=== PATIENT | male | born 1950 | race Caucasian/White ===

== ENCOUNTER 2020-11-21 18:50 | Emergency (ER) | payer OTHER, MEDICARE, MEDICAID, SELFPAY ==
[2020-11-21 19:08] VITALS: BP 190/103; PULSE 76; RESP 18; TEMP 36.6; O2SAT 96; BMI 32.0
--- NOTE | 2020-11-21 19:52 | ECG_ITS ---
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1950 Requested By: Yogi Hough Order Number: [id number] Reading MD: JULES LIM Measurements Intervals [place] Rate: 69 P: 53 MT: 145 QRS: 17 QRSD: 109 T: 44 QT: 468 QTc: 504 Interpretive Statements SINUS RHYTHM POSSIBLE LEFT ATRIAL ENLARGEMENT [-0.1mV P WAVE IN V1/V2] POSSIBLE LATERAL MYOCARDIAL INFARCTION [30 ms Q WAVE IN I/aVL/V5/V6], PROBABLY OLD Compared to ECG 07/12/2016 20:37:22 Left ventricular hypertrophy no longer present ST (T wave) deviation no longer present Myocardial infarct finding still present Electronically Signed On 11-21-2020 23:39:00 CDT by JULES LIM [id number]
--- NOTE | 2020-11-21 19:53 | ED_ITS ---
HPI - General Adult General: Chief complaint: General Medical Stated complaint: high blood pressure Time Seen by Provider: 11/21/20 19:46 Source: patient and family Mode of arrival: ambulatory Limitations: no limitations History of Present Illness: HPI narrative: Patient is here for blood pressure evaluation. He states that since his losartan 25 mg tablet and amlodipine 10 mg tablet were discontinued his blood pressures been running 160s systolic to 190s systolic. He states he continues taking metoprolol 100 mg twice a day. States he has slight chest wall pain bilaterally in the lateral aspects of his chest today. He states this is worse with movement. He denies any other complaints. He is mainly here for evaluation of his blood pressure. MD complaint: Hypertension Onset (ago): unknown (Chronic) Location: chest (Bilateral) Radiation: non-radiation Severity: mild Severity scale (1-10): 1 Quality: aching Pain Consistency: intermittent Relieving factors: none Exacerbating factors: other (Movement or deep breath) Associated symptoms: Reports no associated symptoms and chest pain (Mild bilateral chest wall pain with movement or deep inspiration); Deny dyspnea, headache(s), nausea, rash, palpitations or vomiting Treatments prior to arrival: other (Metoprolol) Review of Systems Const: Denies: fever(s) or chills Eyes: Denies: change in vision ENMT: Denies: throat pain Card: Reports: chest pain (Mild bilateral chest wall pain with movement or deep inspiration); Denies: palpitations Resp: Denies: dyspnea or wheezing GI: Denies: abdominal pain, nausea or vomiting : Denies: flank pain Musc: Denies: neck pain or back pain Skin/Breast: Denies: rash or pruritus Neuro: Denies: headache(s) or numbness in extremities Psych: Denies: anxiety Ciro/Lymph: Denies: enlarged lymph nodes Physical Exam Const: COMMON NORMALS: no acute distress, patient oriented x3, no limitations and well nourished EXAM LIMITATIONS: altered mental status GENERAL APPEARANCE: cooperative HENMT: COMMON NORMALS: normocephalic and atraumatic HEAD & SCALP: normocephalic and atraumatic FACE & SINUS: normal facial exam Eye: COMMON NORMALS: EOMs intact bilaterally Neck/C-Spine: COMMON NORMALS: full ROM, no lymphadenopathy, supple and no meningeal signs GENERAL: Yes normal visual inspection Lymph: LYMPHATIC: no lymphadenopathy noted Chest: COMMONS NORMALS: normal inspection of the chest and normal palpation of entire chest wall CHEST: No Ecchymosis present and No rash Breast/axilla inspection: Yes no chest deformity, asymmetry, normal contours, no nodules, masses, tenderness Resp: COMMON NORMALS: normal respiratory effort, No retractions and clear to auscultation bilaterally EFFORT & INSPECTION: No respiratory distress AUSCULTATION: clear to auscultation bilaterally Cardio: COMMON NORMALS: regular rate, regular rhythm and Peripheral pulses 2+ throughout JUGULAR VENOUS DISTENTION: no JVD RATE: regular rate RHYTHM: regular rhythm PERIPHERAL PULSES: Peripheral pulses 2+ throughout GI: COMMON NORMALS: Normal to inspection, nondistended, normoactive bowel sounds present and non-tender : COMMON NORMALS: Yes no CVA tenderness BLADDER/KIDNEY EXAM: Yes no CVA tenderness Back/Pelvis: COMMON NORMALS: no CVA tenderness Extremity: COMMON NORMALS: normal to inspection, full ROM and capillary refill normal Neuro: COMMON NORMALS: patient oriented x3, CN's II-XII intact bilaterally, no focal motor deficits and no sensory deficits noted MENINGEAL SIGNS: Yes no meningeal signs Psych: COMMON NORMALS: mental status grossly normal and Normal thought process present THOUGHT PROCESS: Normal thought process present Skin: COMMON NORMALS: no rashes or lesions noted and no wounds GENERAL SKIN EXAM: no rashes or lesions noted Course Vital Signs: Vital signs: Vital Signs Temperature 97.8 F 11/21/20 19:08 Pulse Rate 76 11/21/20 19:08 Respiratory Rate 18 11/21/20 19:08 Blood Pressure 190/103 11/21/20 19:08 Pulse Oximetry 96 11/21/20 19:08 MDM - General Adult MDM Narrative: Medical decision making narrative: Patient has chosen to take his home losartan 25 mg tablet here. His blood pressure is 193/103. He gave me a chart of his blood pressures and his systolic blood pressure has been running 160s to 190s after being taken off his losartan and amlodipine. I believe just starting his losartan 25 mg tablet will correct his blood pressure. He is a no distress. Will obtain EKG as a precaution. EKG Data^: EKG 1: Attestation: I personally reviewed and interpreted this EKG as follows: EKG interpretation date: 11/21/20 EKG interpretation time: 20:20 Prior EKG tracings: not available for review Interpretation: Normal sinus rhythm with heart rate of 69. Normal P wave, normal QRS, normal QT interval, normal ST segment, normal T wave. Normal EKG Discharge Plan Discharge Patient Disposition: Home Condition: Stable Discharge Orders: Discharge ED (Routine); Ordered 11/21/20 Ordered By: Yogi Durham Discharge Diet: Advance as tolerated and Low Salt Discharge Activity: Resume usual activity Patient Instructions: Chronic Hypertension (ED), Hypertension (ED), Opioid Safety Activity Restrictions/Additional Instructions: Continue home medications as prescribed. Hold amlodipine. Restart losartan at 25 mg daily. Continue metoprolol at present dose. Document blood pressure readings and follow-up with your doctor next week to see if any other adjustment needs to be made to your blood pressure medication. Return if any problems. Avoid added salt and caffeine. 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
[2020-11-21 21:03] VITALS: BP 178/98; O2SAT 96
== END 2020-11-21 21:04 | disposition home or self-care (01) ==
PROVIDERS: Emergency Provider Family Medicine
DX: I10 Essential (primary) hypertension (principal)
CPT/HCPCS: 93005; 99282

== ENCOUNTER 2023-05-08 10:01 | Outpatient (CLI) | payer OTHER, SELFPAY ==
--- NOTE | 2023-05-08 10:15 | USCV_ITS ---
Edmar Knight Age: 73 Gender: M : 1950 Exam Date: 05/08/2023 10:35 Ordering Phys: KALEY SAUNDERS MD Technologist: KAITLYNN Exam Location: [facility] [place] Indication: copd, cad, chronic ischemic HD, increase in SOB BP: 135 / 65 HR: 60 Rhythm: Sinus Technical Quality: Suboptimal MEASUREMENTS (Male / Female) Normal Values 2D ECHO LV Diastolic Diameter PLAX 3.8 cm 4.2 - 5.9 / 3.9 - 5.3 cm LV Systolic Diameter PLAX 2.3 cm IVS Diastolic Thickness 1.7 cm 0.6 - 1.0 / 0.6 - 0.9 cm IVS Systolic Thickness 1.7 cm LVPW Diastolic Thickness 1.2 cm 0.6 - 1.0 / 0.6 - 0.9 cm LVPW Systolic Thickness 1.7 cm LVOT Diameter 2.2 cm LV Ejection Fraction 2D Teich 71.9 % LV Ejection Fraction MOD 2C 52.3 % LV Ejection Fraction 2C AL 54.1 % LA Diameter 5.1 cm LA Width 4.7 cm LA Height 4.9 cm RA Width 2.8 cm RA Height 3.4 cm Aorta at Sinotubular Diameter 3.1 cm IVC Diameter 1.7 cm M-MODE Aortic Annulus Diameter 2.6 cm LA Ao Ratio MM 2.0 MV E Point Septal Separation 0.7 cm DOPPLER AV Peak Velocity 80.0 cm/s LVOT Peak Velocity 80.0 cm/s AV Area Cont Eq vti 3.9 cm squared AV Area Cont Eq pk 3.7 cm squared MV Peak Velocity 107.0 cm/s MV Area PHT 2.7 cm squared Mitral E to A Ratio 1.0 MV E' Velocity 54.0 cm/s Mitral E to MV E' Ratio 17.3 Mitral E to LV E' Lateral Ratio 16.7 Mitral E to LV E' Septal Ratio 17.9 TR Peak Velocity 81.3 cm/s TR Peak Gradient 2.6 mmHg Right Atrial Pressure 5.0 mmHg Pulmonary Artery Systolic Pressu 7.6 mmHg PV Peak Velocity 106.0 cm/s RV Acceleration Time 0.1 s RV Ejection Time 0.3 s RV AcT/ET 0.4 FINDINGS Left Ventricle Normal left ventricular size, systolic function and wall thickness. There is possible hypokinesis of apical septal wall. Left ventricular ejection fraction is estimated at 55 %. Grade II diastolic dysfunction, moderately elevated filling pressures. Right Ventricle Normal right ventricular size and systolic function. Right Atrium Normal right atrial size. Left Atrium Mildly increased left atrial size. Mitral Valve Mild mitral annular calcification. Mildly thickened mitral valve. No mitral valve stenosis. Trace mitral valve regurgitation. Aortic Valve Structurally normal trileaflet aortic valve. No aortic valve stenosis. No aortic valve regurgitation. Tricuspid Valve Structurally normal tricuspid valve. Pulmonic Valve Pulmonic valve not well visualized. Trace pulmonary valve regurgitation. Pericardium No pericardial effusion. Aorta Normal size aortic root and proximal ascending aorta. IVC Normal IVC dimension with >50% respiratory change of the inferior vena cava. CONCLUSIONS 1. This is a technically difficult study. 2. Normal left ventricular size, systolic function and wall thickness. There is possible hypokinesis of apical septal wall. Left ventricular ejection fraction is estimated at 55 %. Grade II diastolic dysfunction, moderately elevated filling pressures. 3. No significant valvular abnormality. 4. No prior similar studies to compare. Amanda Mao MD (Electronically Signed) Final Date: 12 May 2023 16:42 S
== END 2023-05-08 10:02 | disposition home or self-care (01) ==
PROVIDERS: Visit Provider Emergency Medicine
DX: I25.9 Chronic ischemic heart disease, unspecified (principal); J44.9 Chronic obstructive pulmonary disease, unspecified; R06.02 Shortness of breath; I51.89 Other ill-defined heart diseases
CPT/HCPCS: 93306

== ENCOUNTER → 2023-05-28 10:14 | Outpatient (BNVA) | payer OTHER, SELFPAY | PROVIDERS: Visit Provider Internal Medicine Cardiovascular Disease | DX: R06.09 Other forms of dyspnea (principal); I25.10 Atherosclerotic heart disease of native coronary artery without angina pectoris; I10 Essential (primary) hypertension; E78.5 Hyperlipidemia, unspecified | CPT/HCPCS: 93005; 99203 ==

== ENCOUNTER 2023-10-17 20:56 | Emergency (ER) | payer OTHER, SELFPAY ==
[2023-10-17 21:01] VITALS: BP 198/98; PULSE 88; RESP 17; TEMP 36.7; O2SAT 97; BMI 31.1
--- NOTE | 2023-10-17 21:12 | ECG_ITS ---
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 Measurements Intervals [place] Rate: 86 P: 44 TN: 150 QRS: 19 QRSD: 108 T: 54 QT: 394 QTc: 472 Interpretive Statements SINUS RHYTHM POSSIBLE ANTEROLATERAL MYOCARDIAL INFARCTION , PROBABLY OLD [30 ms Q WAVE IN I/aVL/V3-V6] Compared to ECG 05/28/2023 10:16:59 No significant changes Electronically Signed On 10-17-2023 21:59:15 CDT by Kwabena Cobos M.D. [id number]
--- NOTE | 2023-10-17 21:19 | ED_ITS ---
HPI - General Adult 2 General: Chief complaint: General Medical Stated complaint: High BP Time Seen by Provider: 10/17/23 21:09 Source: patient Mode of arrival: ambulatory Limitations: no limitations History of Present Illness: 73-year-old male states that he fell lik e his blood pressure been running high tonight. He does have a history of high blood pressure he is on Norvasc metoprolol and losartan. He denies any chest pain or headache he states that his blood pressures in the 180s. States that over the last week he has had some cough and congestion he denies any shortness of breath. Denies any fevers. Associated symptoms: Deny chest pain, dyspnea, headache(s), nausea, rash or vomiting Review of Systems 2 Const: Denies: fever(s) or chills ENMT: Denies: throat pain or dental pain Card: Denies: chest pain Resp: Denies: dyspnea GI: Denies: abdominal pain, nausea, vomiting or diarrhea Musc: Denies: neck pain or back pain Skin/Breast: Denies: rash Neuro: Denies: headache(s) PFSH ED 2 PFSH: Medical History Hyperlipidemia CAD (coronary artery disease) COPD (chronic obstructive pulmonary disease) Surgical History Hx of CABG Family History Father Arrhythmia CAD (coronary artery disease) Son Atrial fibrillation Mother Carotid artery disease Other Diabetes mellitus type 1 Hypertension Denies family history of Sudden cardiac Family history of premature coronary artery disease Cardiomyopathy Physical Exam 2 Const: COMMON NORMALS: no acute distress, patient oriented x3 and healthy appearing HENMT: COMMON NORMALS: normocephalic and atraumatic HEAD & SCALP: n ormocephalic and atraumatic Eye: COMMON NORMALS: Equal, round and reactive pupils present and EOMs intact bilaterally PUPIL: Yes Equal, round and reactive pupils present Neck/C-Spine: COMMON NORMALS: full ROM and supple Chest: COMMONS NORMALS: normal inspection of the chest and normal palpation of entire chest wall Resp: COMMON NORMALS: normal respiratory effort, No retractions, No use of accessory muscles and clear to auscultation bilaterally AUSCULTATION: clear to auscultation bilaterally Cardio: COMMON NORMALS: regular rate, regular rhythm and No murmurs present (Cardio) RATE: regular rate RHYTHM: regular rhythm Extremity: COMMON NORMALS: normal to inspection and full ROM Neuro: COMMON NORMALS: patient oriented x3, moves all extremities and no focal motor deficits Psych: COMMON NORMALS: mental status grossly normal, Normal thought process present and cooperative THOUGHT PROCESS: Normal thought process present Skin: COMMON NORMALS: no rashes or lesions noted and no wounds GENERAL SKIN EXAM: no rashes or lesions noted Course 2 Vital Signs: Vital signs: Vital Signs Temperature 98.1 F 10/17/23 21:01 Pulse Rate 80 10/17/23 21:53 Respiratory Rate 20 H 10/17/23 21:53 Blood Pressure 156/85 10/17/23 21:53 Pulse Oximetry 93 10/17/23 21:53 Oxygen Delivery Me thod Room Air 10/17/23 21:01 MDM - General Adult Medical Decision Making Patient presents here with concern of hypertension his blood pressure is improved he feels much improved blood work is normal he has had a cough x-ray shows a possible left lower lobe infiltrate we will start him on doxycycline he is to monitor his blood pressure follow-up his PCP return if worsening understands agrees plan. Medical Records I reviewed the patient's medical records. Lab Data I reviewed the patient's lab results. 10/17/23 21:32 10/17/23 21:32 Radiology Impressions Chest X-Ray 10/17/23 21:19 IMPRESSION: 1. Left lower lobe atelectasis versus minimal infiltrate. 2. Sternotomy wires. Laboratory Results WBC 13.66 10^3/uL (3.29-11.43) H 10/17/23 21:32 RBC 4.84 10^6/uL (3.85-5.65) 10/17/23 21:32 Hgb 14.00 g/dL (11.27-16.99) 10/17/23 21: Hct 43.4 % (37-53) 10/17/23 21:32 MCV 89.7 fl (82-101) 10/17/23 21: MCH 28.9 pg (27-33) 10/17/23 21: MCHC 32.3 g/dL (30-55) 10/17/23 21: RDW 12.2 % (12.1-15.1) 10/17/23 21: Plt Count 351 10^3/cmm (157-399) 10/17/23 21: MPV 9.4 fL (7.4-10.4) 10/17/23 21: Neut % (Auto) 65.2 % 10/17/23 21: Lymph % (Auto) 18.8 % 10/17/23 21: Dare % (Auto) 8.2 % 10/17/23 21:32 Eos % (Auto) 7.0 % 10/17/23 21: Baso % (Auto) 0.4 % 10/17/23: Neut # (Auto) 8.89 10^3/uL (1.8-7.7) H 10/17/23 21: Lymph # (Auto) 2.6 10^3/uL (0.8-4.8) 10/17/23 21: Dare # (Auto) 1.1 10^3/uL (0.2-0.9) H 10/17/23 21:32 Eos # (Auto) 1.0 10^3/uL (0.0-0.8) H 10/17/23 21: Baso # (Auto) 0.1 10^3/uL (0.0-0.1) 10/17/23: Nucleated RBC % (auto) 0 % 10/17/23: Nucleated RBCs # 0.0 /100WBC 10/17/23 21:32 Sodium 136 mmol/L (136-145) 10/17/23 21: Potassium 3.8 mmol/L (3.5-5.1) 10/17/23 21: Chloride 99 mmol/L (98-107) 10/17/23 21: Carbon Dioxide 25 mmol/L (22-29) 10/17/23 21: Anion Gap 15.8 (5-19) 10/17/23 21:32 BUN 7 mg/dL (8-23) L 10/17/23 21:32 Creatinine 0.8 mg/dL (0.7-1.2) 10/17/23 21:32 GFR Calculation Not Reportable 10/17/23 21:32 Glucose 165 mg/dL (65-115) H 10/17/23 21:32 Calculated Osmolality 284 mOsm/kg (285-295) L 10/17/23 21:32 Calcium 9.0 mg/dL (8.5-10.5) 10/17/23 21:32 All radiology interpretation(s) finalized by discharge EKG Data EKG 1: I personally reviewed and interpreted this EKG as follows: EKG interpretation date: 10/17/23 EKG interpretation time: 20:24 Interpretation: nsr hr [address] elevation qrs 108 qtc 437 Computer generated interpretation: Chest X-Ray 10/17/23 21:19 IMPRESSION: 1. Left lower lobe atelectasis versus minimal infiltrate. 2. Sternotomy wires. Discharge Plan Discharge Patient Disposition: Home Clinical Impression: Hypertension Qualifiers: Hypertension type: unspecified Qualified Code(s): I10 - Essential (primary) hypertension Pneumonia Qualifiers: Pneumonia type: due to unspecified organism Condition: Stable Prescriptions: New doxycycline hyclate 100 mg tablet 100 mg PO BID 7 Days Qty: 14 0RF Discharge Orders: Discharge ED (Routine); Ordered 10/17/23 Ordered By: Odalys Baires Discharge Diet: Advance as tolerated Discharge Activity: Resume usual activity Patient Instructions: Hypertension (ED), Pneumonia (ED) Coding Level of Care Code ED Digital Color 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
--- NOTE | 2023-10-17 21:19 | XRR_ITS ---
PROCEDURE INFORMATION: Exam: XR Chest Exam date and time: 10/17/2023 9:28 PM Age: 73 years old Clinical indication: Patient HX: HTN; Cough; HX cabg 2004 TECHNIQUE: Imaging protocol: Radiologic exam of the chest. Views: 1 view. COMPARISON: CR XR chest 1V [id number] 12/28/2017 3:20 PM FINDINGS: Lungs: Left lower lobe atelectasis versus minimal infiltrate. Pleural spaces: Unremarkable. No pleural effusion. No pneumothorax. Heart/Mediastinum: Unremarkable. No cardiomegaly. Bones/joints: Sternotomy wires. XR/XR chest 1V portable [id number] IMPRESSION: 1. Left lower lobe atelectasis versus minimal infiltrate. 2. Sternotomy wires.
[2023-10-17] MEDS: labetalol 5 mg/mL SDV 20mL 10 MG IVP (21:38)
[2023-10-17 21:39] LABS: Basophils # 0.1 10^3/uL (0.0-0.1); Basophils % 0.4 %; Hematocrit 43.4 % (37-53); Lymphocytes # 2.6 10^3/uL (0.8-4.8); Lymphocytes % 18.8 %; Mean Corpuscular HGB Conc 32.3 g/dL (30-55); Mean Corpuscular Hemoglobin 28.9 pg (27-33); Mean Corpuscular Volume 89.7 fl (82-101); Mean Platelet Volume 9.4 fL (7.4-10.4); Monocytes # 1.1 10^3/uL (0.2-0.9); Monocytes % 8.2 %; Neutrophils # 8.89 10^3/uL (1.8-7.7); Neutrophils % 65.2 %; Nucleated Red Blood Cells % 0 %; Platelet Count 351 10^3/cmm (157-399); Red Blood Count 4.84 10^6/uL (3.85-5.65); Red Cell Distribution Width 12.2 % (12.1-15.1); White Blood Count 13.66 10^3/uL (3.29-11.43)
[2023-10-17 21:53] VITALS: BP 156/85; PULSE 80; RESP 20; O2SAT 93
[2023-10-17 21:57] LABS: Blood Urea Nitrogen 7 mg/dL (8-23); Carbon Dioxide 25 mmol/L (22-29); Chloride 99 mmol/L (98-107); Creatinine Clr Calc Pharmacy 104.2317; Glucose 165 mg/dL (65-115); Osmolality Calculated 284 mOsm/kg (285-295); Sodium 136 mmol/L (136-145)
[2023-10-17 22:00] LABS: Anion Gap 15.8 (5-19); Potassium 3.8 mmol/L (3.5-5.1)
[2023-10-17] MEDS: doxycycline 100 mg Tablet PO (22:20)
[2023-10-17 22:25] VITALS: BP 145/86; PULSE 78; RESP 20; O2SAT 94
[2023-10-17 22:31] LABS: Influenza A by IFA negative (Negative); Influenza B by IFA negative (Negative); SARS Covid-2 Antigen negative (Negative)
== END 2023-10-17 22:26 | disposition home or self-care (01) ==
PROVIDERS: Emergency Provider Emergency Medicine
DX: I10 Essential (primary) hypertension (principal); J18.9 Pneumonia, unspecified organism; E78.5 Hyperlipidemia, unspecified; I25.10 Atherosclerotic heart disease of native coronary artery without angina pectoris; J44.9 Chronic obstructive pulmonary disease, unspecified; Z95.1 Presence of aortocoronary bypass graft; Z11.52 Encounter for screening for COVID-19
CPT/HCPCS: 71045; 80048; 85025; 87426; 87804; 93005; 96374; 99285; J3490

== ENCOUNTER 2023-11-15 00:01 | Emergency (ER) | payer OTHER, MEDICARE, SELFPAY ==
[2023-11-15 00:06] VITALS: BP 174/86; PULSE 81; RESP 18; TEMP 36.6; O2SAT 96
[2023-11-15 00:22] VITALS: BP 148/89; PULSE 79; RESP 21; O2SAT 96
--- NOTE | 2023-11-15 00:23 | XRR_ITS ---
PROCEDURE INFORMATION: Exam: XR Chest Exam date and time: 11/15/2023 12:31 AM Age: 73 years old Clinical indication: Prior surgery; Surgery date: 6+ months; Surgery type: Cabg; Patient HX: C/O hypertension; Additional info: HTN TECHNIQUE: Imaging protocol: Radiologic exam of the chest. Views: 1 view. COMPARISON: CR (CHEST, ) 10/17/2023 9:28 PM FINDINGS: Lungs: Left sided chronic appearing pleural thickening and/or interstitial fibrotic changes. Pleural spaces: See Lungs finding. Heart/Mediastinum: Unremarkable. No cardiomegaly. Bones/joints: Sternotomy wires. XR/XR chest 1V portable [id number] IMPRESSION: 1. Negative for infiltrate. 2. Left sided chronic appearing pleural thickening and/or interstitial fibrotic changes. 3. Sternotomy wires.
[2023-11-15 00:41] LABS: Basophils # 0.1 10^3/uL (0.0-0.1); Basophils % 0.5 %; Eosinophils # 0.9 10^3/uL (0.0-0.8); Eosinophils % 6.5 %; Hematocrit 43.6 % (37-53); Lymphocytes # 3.7 10^3/uL (0.8-4.8); Lymphocytes % 27.1 %; Mean Corpuscular HGB Conc 32.3 g/dL (30-55); Mean Corpuscular Hemoglobin 28.8 pg (27-33); Mean Corpuscular Volume 89.2 fl (82-101); Mean Platelet Volume 9.7 fL (7.4-10.4); Monocytes # 1.3 10^3/uL (0.2-0.9); Monocytes % 9.6 %; Nucleated Red Blood Cells % 0 %; Platelet Count 323 10^3/cmm (157-399); Red Blood Count 4.89 10^6/uL (3.85-5.65); Red Cell Distribution Width 12.6 % (12.1-15.1); White Blood Count 13.74 10^3/uL (3.29-11.43)
[2023-11-15 00:52] VITALS: BP 141/85; PULSE 79; RESP 20; O2SAT 96
[2023-11-15 01:02] LABS: Troponin(5th) Baseline 10 ng/L (0-15)
[2023-11-15 01:22] VITALS: BP 162/87; PULSE 71; RESP 20; O2SAT 95
[2023-11-15 01:29] LABS: Alanine Aminotransferase 23 U/L (0-41); Albumin Level 4.2 g/dL (3.5-5.2); Alkaline Phosphatase 113 U/L (40-130); Anion Gap 14.7 (5-19); Aspartate Amino Transferase 21 U/L (0-40); Blood Urea Nitrogen 8 mg/dL (8-23); Calcium 9.3 mg/dL (8.5-10.5); Carbon Dioxide 25 mmol/L (22-29); Chloride 100 mmol/L (98-107); Creatinine Clr Calc Pharmacy 104.2317; Globulin 3.8 g/dL (1.3-4.6); Glucose 120 mg/dL (65-115); Osmolality Calculated 282 mOsm/kg (285-295); Potassium 3.7 mmol/L (3.5-5.1); Sodium 136 mmol/L (136-145); Total Bilirubin 0.9 mg/dL (0.15-1.2)
--- NOTE | 2023-11-15 01:29 | ED_ITS ---
HPI - General Adult 2 General: Chief complaint: General Medical Stated complaint: high bp Time Seen by Provider: 11/15/23 00:03 History of Present Illness: Patient presents to the ER with complaints of high blood pressure and he broke into a sweat today. Patient says he knows when his blood pressure is going high because he gets the feeling weird all over and breaks out into a sweat. Upon arrival patient's blood pressure was 174/86. Patient has been taking his blood pressure medicine which is Norvasc, metoprolol, and losartan, patient denies any chest pain, shortness of breath, Review of Systems 2 General: Reports: 10 or more systems reviewed and unremarkable except in HPI and below PFSH ED 2 PFSH: Medical History Hyperlipidemia CAD (coronary artery disease) COPD (chronic obstructive pulmonary disease) Surgical History Hx of CABG Family History Father Arrhythmia CAD (coronary artery disease) Son Atrial fibrillation Mother Carotid artery disease Other Diabetes mellitus type 1 Hypertension Denies family history of Sudden cardiac Family history of premature coronary artery disease Cardiomyopathy Physical Exam 2 Const: COMMON NORMALS: no acute distress, average body habitus, patient oriented x3, no limitations, healthy appearing, alert and well nourished O THER: Upon physical exam patient states he is feeling much better as his blood pressure has decreased down to approximately 145/90. HENMT: COMMON NORMALS: normocephalic, atraumatic, hearing grossly normal bilaterally, external ears normal, Normal external nose present, moist oral mucous membranes and oropharynx normal HEAD & SCALP: normocephalic and atraumatic NOSE: Normal external nose present EXTERNAL EAR: Yes external ears normal Neck/C-Spine: COMMON NORMALS: no JVD Chest: COMMONS NORMALS: normal inspection of the chest and normal palpation of entire chest wall Resp: COMMON NORMALS: normal respiratory effort, No retractions, No use of accessory muscles and clear to auscultation bilaterally AUSCULTATION: clear to auscultation bilaterally Cardio: COMMON NORMALS: no JVD, regular rate, regular rhythm, S1 normal heart sound present, S2 normal heart sound present, No gallops present (Cardio), No clicks present (Cardio), No murmurs present (Cardio) and No rub (Cardio) R ATE: regular rate RHYTHM: regular rhythm HEART SOUNDS: S1 normal heart sound present and S2 normal heart sound present GI: COMMON NORMALS: Normal to inspection, nondistended, normoactive bowel sounds present, Soft to palpation, non-tender, No hepatosplenomegaly present and no masses PALPATION: Yes Soft to palpation and Yes No hepatosplenomegaly present Neuro: COMMON NORMALS: patient oriented x3 SENSORIUM/ORIENTATION: Yes alert Course 2 Vital Signs: Vital signs: Vital Signs Temperature 98 F 11/15/23 00:06 Pulse Rate 70 11/15/23 01:36 Respiratory Rate 21 H 11/15/23 01:36 Blood Pressure 149/86 11/15/23 01:36 Pulse Oximetry 96 11/15/23 01:36 Oxygen Delivery Me thod Room Air 11/15/23 01:34 MDM - General Adult Medical Decision Making Patient had lab work included CBC CMP troponin chest x-ray, all of which was essentially negative for acute changes. Patient is feeling much better as his blood pressure was down to 141/85. Patient states he is ready to go home. Patient be discharged on a low-dose of clonidine to take it only if his blood pressure is greater than 160/90. Patient is to follow-up with his primary care practitioner. Lab Data 11/15/23 00:00 11/15/23 01:06 Radiology Impressions Chest X-Ray 11/15/23 00:23 IMPRESSION: 1. Negative for infiltrate. 2. Left sided chronic appearing pleural thickening and/or interstitial fibrotic changes. 3. Sternotomy wires. Laboratory Results WBC 13.74 10^3/uL (3.29-11.43) H 11/15/23 00:00 RBC 4.89 10^6/uL (3.85-5.65) 11/15/23 00:00 Hgb 14.10 g/dL (11.27-16.99) 11/15/23 00:00 Hct 43.6 % (37-53) 11/15/23 00:00 MCV 89.2 fl (82-101) 11/15/23 00:00 MCH 28.8 pg (27-33) 11/15/23 00:00 MCHC 32.3 g/dL (30-55) 11/15/23 00:00 RDW 12.6 % (12.1-15.1) 11/15/23 00:00 Plt Count 323 10^3/cmm (157-399) 11/15/23 00:00 MPV 9.7 fL (7.4-10.4) 11/15/23 00:00 Neut % (Auto) 56.0 % 11/15/23 00:00 Lymph % (Auto) 27.1 % 11/15/23 00:00 Boundary % (Auto) 9.6 % 11/15/23 00:00 Eos % (Auto) 6.5 % 11/15/23 00:00 Baso % (Auto) 0.5 % 11/15/23 00:00 Neut # (Auto) 7.70 10^3/uL (1.8-7.7) 11/15/23 00:00 Lymph # (Auto) 3.7 10^3/uL (0.8-4.8) 11/15/23 00:00 Boundary # (Auto) 1.3 10^3/uL (0.2-0.9) H 11/15/23 00:00 Eos # (Auto) 0.9 10^3/uL (0.0-0.8) H 11/15/23 00:00 Baso # (Auto) 0.1 10^3/uL (0.0-0.1) 11/15/23 00:00 Nucleated RBC % (auto) 0 % 11/15/23 00:00 Nucleated RBCs # 0.0 /100WBC 11/15/23 00:00 Sodium 136 mmol/L (136-145) 11/15/23 01:06 Potassium 3.7 mmol/L (3.5-5.1) 11/15/23 01:06 Chloride 100 mmol/L (98-107) 11/15/23 01:06 Carbon Dioxide 25 mmol/L (22-29) 11/15/23 01:06 Anion Gap 14.7 (5-19) 11/15/23 01:06 BUN 8 mg/dL (8-23) 11/15/23 01:06 Creatinine 0.7 mg/dL (0.7-1.2) 11/15/23 01:06 GFR Calculation Not Reportable 11/15/23 01:06 Glucose 120 mg/dL (65-115) H 11/15/23 01:06 Calculated Osmolality 282 mOsm/kg (285-295) L 11/15/23 01:06 Calcium 9.3 mg/dL (8.5-10.5) 11/15/23 01:06 Total Bilirubin 0.9 mg/dL (0.15-1.2) 11/15/23 01:06 AST 21 U/L (0-40) 11/15/23 01:06 ALT 23 U/L (0-41) 11/15/23 01:06 Alkaline Phosphatase 113 U/L (40-130) 11/15/23 01:06 Troponin T Baseline 10 ng/L (0-15) 11/15/23 00:00 Total Protein 8.0 g/dL (6.6-8.7) 11/15/23 01:06 Albumin 4.2 g/dL (3.5-5.2) 11/15/23 01:06 Globulin 3.8 g/dL (1.3-4.6) 11/15/23 01:06 All radiology interpretation(s) finalized by discharge Discharge Plan Discharge Patient Disposition: Home Clinical Impression: Hypertension Qualifiers: Hypertension type: unspecified Qualified Code(s): I10 - Essential (primary) hypertension Condition: Stable Prescriptions: New clonidine HCl 0.1 mg tablet 0.1 mg PO Q6H PRN (Reason: For blood pressure greater than 160/90) Qty: 30 0RF Discharge Orders: Discharge ED (Routine); Ordered 11/15/23 Ordered By: Andrae Dietz Patient Instructions: Hypertension (ED) Activity Restrictions/Additional Instructions: Your blood pressure improved on its own with it out any medicine in the ER. You will be discharged home with a additional prescription for clonidine to take only when your blood pressure is greater than 160/90. Please take it as directed. Please follow-up with your Coding Level of Care Code ED Fagoter for Jerman Yañez
[2023-11-15 01:34] VITALS: BP 145/83; PULSE 68; RESP 22; O2SAT 95
[2023-11-15 01:36] VITALS: BP 149/86; PULSE 70; RESP 21; O2SAT 96
== END 2023-11-15 01:50 | disposition home or self-care (01) ==
PROVIDERS: Emergency Provider Emergency Medicine
DX: I10 Essential (primary) hypertension (principal); E78.5 Hyperlipidemia, unspecified; I25.10 Atherosclerotic heart disease of native coronary artery without angina pectoris; J44.9 Chronic obstructive pulmonary disease, unspecified; Z95.1 Presence of aortocoronary bypass graft
CPT/HCPCS: 36415; 71045; 80053; 84484; 85025; 99285

== ENCOUNTER 2024-09-21 07:18 | Emergency (ER) | payer OTHER, MEDICARE, SELFPAY ==
--- NOTE | 2024-09-21 07:23 | XR_ITS ---
WS: [id number] PORTABLE CHEST HISTORY: dyspnea/cough COMPARISON: 11/15/2023 Prior CABG. Slight volume loss in the LEFT lung with pleural thickening and adjacent linear atelectasis or scar extending into the lung, similar to the prior studies. No pneumonia or consolidation no pleural effusion or pneumothorax. Cardiac size: Normal. 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 XR/XR chest 1V portable [id number] IMPRESSION: 1. Stable chest since 11/15/2023. No pneumonia. 2. Pleural thickening with adjacent parenchymal scarring in the LEFT lung is s table. 3. No pulmonary congestion. 4. Prior CABG.
[2024-09-21 07:28] VITALS: BP 124/66; PULSE 72; RESP 16; TEMP 36.9; O2SAT 95; BMI 30.4
[2024-09-21 08:47] LABS: Influenza A POSITIVE (Negative); Influenza B NEGATIVE (Negative); Respiratory Syncytial Virus Ce NEGATIVE (Negative); SARS-CoV-2 PCR NEGATIVE (Negative)
--- NOTE | 2024-09-21 09:08 | W.ED.URI ---
HPI - URI/Sore Throat General: Chief Complaint: Upper Respiratory Infection Stated Complaint: congestion Time Seen by Provider: 09/21/24 07:23 Source: patient Mode of arrival: ambulatory Limitations: no limitations History of Present Illness: Patient is a nice 74-year-old male presents to ED today along with his significant other for complaints of nasal congestion, cough, body aches, fatigue over the past several days/week. No known sick contacts. No obvious fevers. He is still eating and drinking normally. Patient is concerned that he may have pneumonia. MD elicited complaint: cough, nasal congestion and other (chills/body aches) Onset (ago): day(s) Consistency: constant Severity: mild Description of mucous: clear Able to tolerate fluids by mouth: Yes Exacerbating factors: nothing Relieving factors: other (lemon/honey) Associated symptoms: Reports nasal congestion; Deny abdominal pain, chills, chest pain, diarrhea, ear or mastoid pain, fever(s), headache(s), nausea or vomiting Treatments prior to arrival: none Related Data Home Medications ?Medication ?Instructions ?Recorded ?Confirmed amlodipine 2.5 mg tablet 2.5 mg PO DAILY 09/21/24 09/21/24 aspirin 81 mg tablet,delayed 81 mg PO DAILY 09/21/24 09/21/24 release (Janneth Low Dose Aspirin) atorvastatin 80 mg tablet 80 mg PO DAILY 09/21/24 09/21/24 gabapentin 800 mg tablet 800 mg PO BID 09/21/24 09/21/24 losartan 100 mg tablet 100 mg PO DAILY 09/21/24 09/21/24 metoprolol succinate 200 mg 200 mg PO DAILY 09/21/24 09/21/24 tablet,extended release 24 hr oxycodone-acetaminophen 5 mg-325 1 tab PO Q6H PRN Pain 09/21/24 09/21/24 mg tablet (Percocet) polyethylene glycol 3350 17 gram 17 g PO DAILY 09/21/24 09/21/24 oral powder packet (Miralax) sitagliptin 100 mg tablet 100 mg PO DAILY 09/21/24 09/21/24 Allergies Allergy/AdvReac Type Severity Reaction Status Date / Time chlorhexidine Allergy ALGY-Rash Verified 10/17/23 21:06 flunisolide Allergy Unknown Verified 10/17/23 21:06 omeprazole (From Prilosec) Allergy Unknown Verified 10/17/23 21:06 Review of Systems Const: Reports: body aches and fatigue; Denies: fever(s) or chills Eyes: Denies: change in vision, blurry vision or photophobia ENMT: Reports: nasal discharge and nasal congestion; Denies: ear or mastoid pain Card: Denies: chest pain Resp: Reports: non-productive cough and chest congestion; Denies: dyspnea GI: Denies: abdominal pain, nausea, vomiting or diarrhea Musc: Denies: neck pain, back pain, extremity pain or joint swelling Skin/Breast: Denies: rash Neuro: Denies: headache(s), numbness in extremities, weakness in extremities, sensory changes or dizziness PFSH ED PFSH: Medical History Hyperlipidemia CAD (coronary artery disease) COPD (chronic obstructive pulmonary disease) Surgical History Hx of CABG Family History Father Arrhythmia CAD (coronary artery disease) Son Atrial fibrillation Mother Carotid artery disease Other Diabetes mellitus type 1 Hypertension Denies family history of Sudden cardiac Family history of premature coronary artery disease Cardiomyopathy Physical Exam Const: COMMON NORMALS: no acute distress, average body habitus, patient oriented x3, no limitations, healthy appearing, alert and well nourished GENERAL APPEARANCE: cooperative HENMT: FACE & SINUS: normal facial exam and sinuses nontender THROAT: posterior oropharynx normal and tonsils normal Eye: GENERAL EYE: appearance normal, both eyes and all related structures and normal light reflex DIRECT OPHTHALMOSCOPY: Yes normal light reflex Neck/C-Spine: COMMON NORMALS: no lymphadenopathy Resp: COMMON NORMALS: normal respiratory effort and clear to auscultation bilaterally AUSCULTATION: clear to auscultation bilaterally Cardio: COMMON NORMALS: regular rate and regular rhythm RATE: regular rate RHYTHM: regular rhythm GI: COMMON NORMALS: Normal to inspection, nondistended, normoactive bowel sounds present, Soft to palpation and non-tender PALPATION: Yes Soft to palpation Extremity: GENERAL: Yes normal exam except as noted Neuro: COMMON NORMALS: patient oriented x3 SENSORIUM/ORIENTATION: Yes alert Course Vital Signs: Vital signs: Vital Signs Temperature 98.5 F 09/21/24 07:28 Pulse Rate 72 09/21/24 07:28 Respiratory Rate 16 09/21/24 07:28 Blood Pressure 124/66 09/21/24 07:28 Pulse Oximetry 95 09/21/24 07:28 Oxygen Delivery Me thod Room Air 09/21/24 07:28 MDM - URI/Sore Throat Medical Decision Making Patient clinically appears no acute distress. His vital signs are stable. CXR is stable. He was positive for influenza A. He is outside the window for Tamiflu. Discussed conservative therapies. Return ED precautions given. Medical Records I reviewed the patient's medical records. Lab Data I reviewed the patient's lab results. Radiology Impressions Chest X-Ray 09/21/24 07:23 IMPRESSION: 1. Stable chest since 11/15/2023. No pneumonia. 2. Pleural thickening with adjacent parenchymal scarring in the LEFT lung is stable. 3. No pulmonary congestion. 4. Prior CABG. Laboratory Results Influenza A (PCR) Positive (Negative) 09/21/24 07:31 Influenza Type B (PCR) Negative (Negative) 09/21/24 07:31 RSV (PCR) Negative (Negative) 09/21/24 07:31 SARS-CoV-2 (PCR) Negative (Negative) 09/21/24 07:31 All radiology interpretation(s) finalized by discharge Discharge Plan Discharge Patient Disposition: Home Clinical Impression: Influenza Condition: Stable Prescriptions: No Action atorvastatin 80 mg Tablet 80 mg PO DAILY polyethylene glycol 3350 [Miralax] 17 gram Powder In Packet 17 g PO DAILY metoprolol succinate 200 mg Tablet Extended Release 24 Hr 200 mg PO DAILY amlodipine 2.5 mg Tablet 2.5 mg PO DAILY aspirin [Janneth Low Dose Aspirin] 81 mg Tablet,Delayed Release (Dr/Ec) 81 mg PO DAILY oxycodone-acetaminophen [Percocet] 5-325 mg Tablet 1 tab PO Q6H PRN (Reason: Pain) gabapentin 800 mg Tablet 800 mg PO BID losartan 100 mg Tablet 100 mg PO DAILY sitagliptin 100 mg Tablet 100 mg PO DAILY Discharge Orders: Discharge ED (Routine); Ordered 09/21/24 Ordered By: Lidya Peña Referrals: Janina Pressley MD [Primary Care Provider] - Patient Instructions: Influenza (DC) Activity Restrictions/Additional Instructions: As we discussed, you are positive for influenza A. This was a virus and antibiotics are not indicated. Your chest x-ray was unremarkable. We discussed multiple conservative therapies to help with your symptoms. You may follow-up with primary care later this week if you do not seem to be improving. You may return to the emergency department at anytime for any further concerns you may have. I hope you begin to feel better soon. Print Language: Ukrainian Coding Level of Care Code ED Practice Lead for Jerman Yañez
[2024-09-21 10:04] VITALS: BP 123/81; PULSE 70; RESP 16; O2SAT 95
== END 2024-09-21 10:06 | disposition home or self-care (01) ==
PROVIDERS: Family Medicine; Emergency Provider Physician Assistant; PCP Family Medicine
DX: J10.1 Influenza due to other identified influenza virus with other respiratory manifestations (principal); Z11.52 Encounter for screening for COVID-19; I25.10 Atherosclerotic heart disease of native coronary artery without angina pectoris; J44.9 Chronic obstructive pulmonary disease, unspecified; E78.5 Hyperlipidemia, unspecified; Z95.1 Presence of aortocoronary bypass graft
CPT/HCPCS: 71045; 87637; 99283